=== PATIENT | female | born 1970 ===

== ENCOUNTER 2018-09-10 15:11 | Inpatient (IN) | payer MEDICARE ==
[2018-09-10] MEDS ORDERED: Albuterol-Ipratrop 3 mg / 0.5 (3 ml) UD ONE ×2 (16:12→16:37)
[2018-09-10] MEDS ORDERED: Albuterol-Ipratrop 3 mg / 0.5 (3 ml) UD INH STA ×2 (16:33→16:42)
--- NOTE | 2018-09-10 16:36 | ED PDOC ---
HPI: SOB/CHF/COPD Time Seen by Provider: 09/10/18 16:03 Chief Complaint (Nursing): Shortness Of Breath Chief Complaint (Provider): cough and shortness of breath History Per: Patient History/Exam Limitations: no limitations Onset/Duration Of Symptoms: Days Quality: Sharp Associated Symptoms: Chills, Sweating, Chest Pain, Productive Cough. denies: Fever Additional Complaint(s): 48 y/o F with HTN, HL, DM-II, asthma who presents with SOB and cough x 1 month, worse over the past 4 days. Pt states that she always coughs with her asthma and has been coughing worse at night, intermittently productive of sputum. Further admits to intermittent dizziness. No palpitations, fever, sick contacts. She has bodyaches and pleuritic chest pain. Denies radiation of pain to arm/jaw. She has gained 15lbs in the past month and has worse SOB with laying flat. + PND. Past Medical History Reviewed: Historical Data, Nursing Documentation, Vital Signs Vital Signs: Last Vital Signs Temp 98.2 F 09/10/18 15:23 Pulse 118 H 09/10/18 15:23 Resp 24 09/10/18 15:23 BP 118/52 L 09/10/18 15:23 Pulse Ox 96 09/10/18 15:23 - Medical History PMH: Diabetes, HTN, Hypercholesterolemia - Family History Family History: States: Unknown Family Hx - Social History Current smoker - smoking cessation education provided: Yes - Home Medications Home Medications: Ambulatory Orders Medication Instructions Recorded Albuterol Sulfate [Ventolin Hfa] 2 puff IH Q6 PRN 09/10/18 Gabapentin [Neurontin] 800 mg PO QID PRN 09/10/18 Insulin Glargine,Hum.rec.anlog 50 unit SQ HS 09/10/18 [Lantus] Montelukast [Singulair] 10 mg PO DAILY 09/10/18 Oxybutynin [Oxybutynin Chloride] 5 mg PO DAILY 09/10/18 RX: MetFORMIN [glucoPHAGE] 1,000 mg PO BID 09/10/18 Risperidone [Risperdal] 1 mg PO DAILY 09/10/18 - Allergies Allergies/Adverse Reactions: Allergies Allergy/AdvReac Type Severity Reaction Status Date / Time No Known Allergies Allergy Verified 09/10/18 15:23 Review of Systems Constitutional: Negative for: Fever Cardiovascular: Positive for: Orthopnea Respiratory: Positive for: Cough, Shortness of Breath, Pleuritic Pain, Sputum Gastrointestinal: Negative for: Nausea, Vomiting Genitourinary Female: Negative for: Dysuria Physical Exam - Reviewed Nursing Documentation Reviewed: Yes Vital Signs Reviewed: Yes - Physical Exam Appears: Positive for: Uncomfortable Head Exam: Positive for: ATRAUMATIC Skin: Positive for: Normal Color Eye Exam: Positive for: Normal appearance ENT: Negative for: Nasal Congestion Cardiovascular/Chest: Positive for: Tachycardia Respiratory: Positive for: Crackles (B/L up to upper lung zones). Negative for: Accessory Muscle Use, Wheezing Gastrointestinal/Abdominal: Positive for: Normal Exam Back: Positive for: Normal Inspection Extremity: Negative for: Pedal Edema Lymphatic: Positive for: Normal Exam Neurologic/Psych: Positive for: Alert, Oriented - Laboratory Results Result Diagrams: 09/10/18 16:40 09/10/18 16:40 - ECG O2 Sat by Pulse Oximetry: 96 Medical Decision Making Medical Decision Making: EKG Trop, CBC, CMP, BNP Chest PA and lateral Duoneb X 1 BNP > 3000 Chest XR: Multifocal infiltrates bilaterally right greater than left. Possible underlying confluent masses. In the absence of prior studies follow-up r ecommended. CT scan of the thorax may better clarify these findings. HgB: 8.5, WBCs: 14K EKG: sinus rhythm Pt's symptoms persisted after Duoneb x 2. Admit to Hospitalist service for further w/u of respiratory failure. Lasix 60mg IV given x 1 Disposition - Patient ED Disposition Is Patient to be Admitted: Yes Discussed With DrMichael: Lizabeth Rojas Doctor Will See Patient In The: ED Counseled Patient/Family Regarding: Studies Performed, Diagnosis, Need For Followup - Disposition Disposition: Transfer of Care Disposition Time: 18:28 Condition: GUARDED
[2018-09-10 16:51] LABS: BASO # 0.2 K/uL (0.0-0.2); BASO % 1.3 % (0.0-2.0); EOS % 0.2 % (0.0-4.0); HEMOGLOBIN 8.5 g/dL (12.0-16.0); LYMPH # 1.8 K/uL (1.0-4.3); LYMPH % 12.7 % (20.0-40.0); MEAN CELL VOLUME 93.7 fl (81.0-99.0); MEAN CORPUSCULAR HEMOGLOBIN 30.6 pg (27.0-31.0); MEAN CORPUSCULAR HGB CONC 32.7 g/dL (33.0-37.0); MEAN PLATELET VOLUME 9.1 fl (7.2-11.7); MONO # 0.9 K/uL (0.0-0.8); MONO % 6.1 % (0.0-10.0); NEUT # 11.1 K/uL (1.8-7.0); NEUT % 79.7 % (50.0-75.0); RBC 2.77 Mil/uL (3.80-5.20); RED CELL DISTRIBUTION WIDTH 13.5 % (11.5-14.5)
--- NOTE | 2018-09-10 17:07 | RAD ---
Date of service: 09/10/2018 HISTORY: shortness of breath, cough COMPARISON: No prior. TECHNIQUE: Chest PA and lateral FINDINGS: LUNGS: Multiple confluent alveolar consolidative changes bilaterally affecting the right lung to a greater extent than the left. There is suggestion of masslike properties to these findings. PLEURA: No significant pleural effusion identified. No pneumothorax apparent. CARDIOVASCULAR: No aortic atherosclerotic calcification present. Normal cardiac size. No pulmonary vascular congestion. OSSEOUS STRUCTURES: No significant abnormalities. VISUALIZED UPPER ABDOMEN: Normal. OTHER FINDINGS: None. IMPRESSION: Multifocal infiltrates bilaterally right greater than left. Possible underlying confluent masses. In the absence of prior studies follow-up recommended. CT scan of the thorax may better clarify these findings.
[2018-09-10 17:13] LABS: ALB/GLOB RATIO 1.1 (1.0-2.1); ALBUMIN 3.7 g/dL (3.5-5.0); CALCIUM 9.2 mg/dL (8.4-10.2)
[2018-09-10 17:14] LABS: TROPONIN I 0.054 ng/mL (0.00-0.120)
[2018-09-10 19:07] LABS: INR 1.1; PROTHROMBIN TIME 12.6 Seconds (9.8-13.1)
[2018-09-10 19:10] LABS: PARTIAL THROMBOPLASTIN TIME 29.7 Seconds (25.6-37.1)
--- NOTE | 2018-09-10 20:53 | CP.PCM.HP ---
<Sultan Rachel - Last Filed: 09/11/18 01:43> History of Present Illness - History of Present Illness History of Present Illness: CC: productive cough and dyspnea HPI: 48 year old female with PMHx of asthma, HTN, DM II presents to [facility] ED with complaints of cough >1 month with worsening cough and shortness of breath for last few days. Patient reports she thought her asthma has been acting up and uses her inhaler more frequently. States last 4 days she feels bodyaches, fever and chills. Reports chest pain with coughing. Denies headache, dizziness, nausea, vomiting or focal weakness. PMHX: Asthma, HTN, DMII, HLD PSHX: Denies Social hx: smokes 10 cigarettes/day for 30 yrs. Denies Etoh use or illicit drugs uses Family hx: Grandmother has DMII Allergies: NKDA Medications: reviewed Present on Admission - Present on Admission Any Indicators Present on Admission: No Review of Systems - Review of Systems Review of Systems: All 12 systems reviewed and negative except as mentioned in HPI Past Patient History - Past Social History Smoking Status: Heavy Smoker > 10 Cigarettes Daily - PULMONARY Hx Asthma: Yes - PSYCHIATRIC Hx Substance Use: Yes - SURGICAL HISTORY Hx Surgeries: Yes Meds Allergies/Adverse Reactions: Allergies Allergy/AdvReac Type Severity Reaction Status Date / Time No Known Allergies Allergy Verified 09/10/18 15:23 Physical Exam - Constitutional Appears: Non-toxic, Other (looks uncomfortable) - Head Exam Head Exam: ATRAUMATIC, NORMAL INSPECTION, NORMOCEPHALIC - Eye Exam Eye Exam: EOMI, Normal appearance - ENT Exam ENT Exam: Mucous Membranes Moist, Normal Exam - Neck Exam Neck exam: Positive for: Full Rom, Normal Inspection. Negative for: Meningismus - Respiratory Exam Additional comments: B/L diffuse crackles more prominent in lower lung moreno - Cardiovascular Exam Cardiovascular Exam: REGULAR RHYTHM, +S1, +S2 - GI/Abdominal Exam GI & Abdominal Exam: Normal Bowel Sounds, Soft. absent: Tenderness - Extremities Exam Extremities exam: Positive for: normal capillary refill, normal inspection, pedal pulses present. Negative for: calf tenderness, pedal edema - Back Exam Back exam: absent: CVA tenderness (L), CVA tenderness (R) - Neurological Exam Neurological exam: Alert, Oriented x3 - Psychiatric Exam Psychiatric exam: Normal Affect, Normal Mood - Skin Skin Exam: Dry, Normal Color, Warm Results - Vital Signs Recent Vital Signs: Last Vital Signs Temp 99.4 F 09/10/18 20:42 Pulse 106 H 09/10/18 20:42 Resp 14 09/10/18 20:42 BP 110/65 09/10/18 20:42 Pulse Ox 96 09/10/18 20:42 - Labs Result Diagrams: 09/10/18 16:40 09/10/18 16:40 Labs: Laboratory Results - last 24 hr 09/10/18 09/10/18 09/10/18 16:40 16:40 18:56 WBC 14.0 H RBC 2.77 L Hgb 8.5 L Hct 26.0 L MCV 93.7 MCH 30.6 MCHC 32.7 L RDW 13.5 Plt Count 299 MPV 9.1 Neut % (Auto) 79.7 H Lymph % (Auto) 12.7 L [place] % (Auto) 6.1 Eos % (Auto) 0.2 Baso % (Auto) 1.3 Neut # (Auto) 11.1 H Lymph # (Auto) 1.8 [place] # (Auto) 0.9 H Eos # (Auto) 0.0 Baso # (Auto) 0.2 PT 12.6 INR 1.1 APTT 29.7 Sodium 136 Potassium 4.4 Chloride 100 Carbon Dioxide 24 Anion Gap 16 BUN 31 H Creatinine 1.4 H Est GFR ( Amer) 49 Est GFR (Non-Af Amer) 40 Random Glucose 250 H Calcium 9.2 Total Bilirubin 0.6 AST 25 ALT 18 Alkaline Phosphatase 88 Troponin I 0.0540 NT-Pro-B Natriuret Pep 3080 H Total Protein 7.2 Albumin 3.7 Globulin 3.5 Albumin/Globulin Ratio 1.1 Influenza Typ A,B (EIA) 09/10/18 18:56 WBC RBC Hgb Hct MCV MCH MCHC RDW Plt Count MPV Neut % (Auto) Lymph % (Auto) [place] % (Auto) Eos % (Auto) Baso % (Auto) Neut # (Auto) Lymph # (Auto) [place] # (Auto) Eos # (Auto) Baso # (Auto) PT INR APTT Sodium Potassium Chloride Carbon Dioxide Anion Gap BUN Creatinine Est GFR ( Amer) Est GFR (Non-Af Amer) Random Glucose Calcium Total Bilirubin AST ALT Alkaline Phosphatase Troponin I NT-Pro-B Natriuret Pep Total Protein Albumin Globulin Albumin/Globulin Ratio Influenza Typ A,B (EIA) Negative for flu a/b Assessment & Plan - Assessment and Plan (Free Text) Assessment: 48 year old female with PMHx of asthma, HTN, DM II presents to [facility] ED with complaints of cough >1 month with worsening cough and shortness of breath for last few days. Associated symptoms including fever, chills and bodyaches. Chest x-ray shows multifocal infiltrates bilaterally right greater than left. Patient is admitted for pneumonia. Plan: Community acquired pneumonia -CXR showed shows multifocal infiltrates bilaterally right greater than left. -WBC 14.0 with left shift -Febrile and tachycardic -start Ceftrixone 1gm IVPB Q24 hrs -Start Azithromycin 500mg ivpb q24 hrs -c/w duoneb q6hrs -f/u labs and blood cx -f/u chest CT Dyspnea Likely secondary to PNA and possible new onset CHF -proBNP 3080 -s/p Lasix 60 mg IV in ED -c/w Lasix 60 mg QD -c/w duoneb q6 hr -f/u on ECHO Acute kidney injury BUN 31, Cr 1.4 with eGFR 40 -Unknown whether superimposed on chronic MOHAMUD -Encourage hydration -F/U am labs Anemia -H&H 8.5/26.0 -f/u AM labs IDDM II -resume home medication except for metformin -accucheck ACHS -Low sliding scale insulin DVT prophylaxis: Lovenox 30 mg SC daily GI prophylaxis: Pantoprazole 40 mg Code status -Full code Plan d/w with Dr. Bob Ramos, pgy-2 <Lizabeth Rojas - Last Filed: 09/11/18 18:34> Results - Vital Signs Recent Vital Signs: Last Vital Signs Temp 98.5 F 09/11/18 16:48 Pulse 98 H 09/11/18 16:48 Resp 20 09/11/18 16:48 BP 105/68 09/11/18 16:48 Pulse Ox 98 09/11/18 16:48 - Labs Result Diagrams: 09/11/18 04:45 09/11/18 04:45 Labs: Laboratory Results - last 24 hr 09/10/18 09/10/18 09/10/18 18:56 18:56 18:56 WBC RBC Hgb Hct MCV MCH MCHC RDW Plt Count MPV Neut % (Auto) Lymph % (Auto) [place] % (Auto) Eos % (Auto) Baso % (Auto) Neut # (Auto) Lymph # (Auto) [place] # (Auto) Eos # (Auto) Baso # (Auto) PT 12.6 INR 1.1 APTT 29.7 Sodium Potassium Chloride Carbon Dioxide Anion Gap BUN Creatinine Est GFR ( Amer) Est GFR (Non-Af Amer) POC Glucose (mg/dL) Random Glucose Calcium Phosphorus Magnesium Procalcitonin 4.95 H HIV-1 Ab Rapid Screen Influenza Typ A,B (EIA) Negative for flu a/b 09/10/18 09/11/18 09/11/18 22:31 04:45 04:45 WBC 12.0 H RBC 2.65 L Hgb 8.1 L Hct 24.8 L MCV 93.6 MCH 30.6 MCHC 32.7 L RDW 13.5 Plt Count 291 MPV 9.1 Neut % (Auto) 66.5 Lymph % (Auto) 22.0 [place] % (Auto) 8.4 Eos % (Auto) 2.5 Baso % (Auto) 0.6 Neut # (Auto) 8.0 H Lymph # (Auto) 2.6 [place] # (Auto) 1.0 H Eos # (Auto) 0.3 Baso # (Auto) 0.1 PT INR APTT Sodium 138 Potassium 4.3 Chloride 103 Carbon Dioxide 28 Anion Gap 11 BUN 29 H Creatinine 1.4 H Est GFR ( Amer) 49 Est GFR (Non-Af Amer) 40 POC Glucose (mg/dL) 204 H Random Glucose 152 H Calcium 8.7 Phosphorus 4.3 Magnesium 2.2 Procalcitonin HIV-1 Ab Rapid Screen Influenza Typ A,B (EIA) 09/11/18 09/11/18 04:59 09:57 WBC RBC Hgb Hct MCV MCH MCHC RDW Plt Count MPV Neut % (Auto) Lymph % (Auto) [place] % (Auto) Eos % (Auto) Baso % (Auto) Neut # (Auto) Lymph # (Auto) [place] # (Auto) Eos # (Auto) Baso # (Auto) PT INR APTT Sodium Potassium Chloride Carbon Dioxide Anion Gap BUN Creatinine Est GFR ( Amer) Est GFR (Non-Af Amer) POC Glucose (mg/dL) 172 H Random Glucose Calcium Phosphorus Magnesium Procalcitonin HIV-1 Ab Rapid Screen Non reactive Influenza Typ A,B (EIA) Attending/Attestation - Attestation I have personally seen and examined this patient.: Yes I have fully participated in the care of the patient.: Yes I have reviewed all pertinent clinical information: Yes Notes (Text): 09/11/18 18:33 agree with findings and plan as above.
[2018-09-11] MEDS ORDERED: Azithromycin 500 MG in Sodium Chloride 0.9% 250 ML IVPB STA (00:01)
[2018-09-11] MEDS: Oxycodone/Acetaminophen 5/325 mg Tab PO PRN ×3 (00:39→21:01)
[2018-09-11] MEDS: Albuterol-Ipratrop 3 mg / 0.5 (3 ml) UD INH SCH ×4 (00:59→19:02)
[2018-09-11] MEDS ORDERED: Petrolatum UD PAK TOP PRN (01:08)
[2018-09-11 05:33] LABS: BASO # 0.1 K/uL (0.0-0.2); BASO % 0.6 % (0.0-2.0); EOS # 0.3 K/uL (0.0-0.7); EOS % 2.5 % (0.0-4.0); HEMOGLOBIN 8.1 g/dL (12.0-16.0); LYMPH # 2.6 K/uL (1.0-4.3); MEAN CELL VOLUME 93.6 fl (81.0-99.0); MEAN CORPUSCULAR HEMOGLOBIN 30.6 pg (27.0-31.0); MEAN CORPUSCULAR HGB CONC 32.7 g/dL (33.0-37.0); MEAN PLATELET VOLUME 9.1 fl (7.2-11.7); MONO % 8.4 % (0.0-10.0); NEUT % 66.5 % (50.0-75.0); RBC 2.65 Mil/uL (3.80-5.20); RED CELL DISTRIBUTION WIDTH 13.5 % (11.5-14.5)
[2018-09-11 05:48] LABS: CALCIUM 8.7 mg/dL (8.4-10.2)
--- NOTE | 2018-09-11 07:09 | CARD ---
APPROVED REPORT Date of service: 09/10/2018 EKG Measurement Heart [id number] <Conclusion> Sinus tachycardia Poor R wave progression Abnormal ECG
[2018-09-11] MEDS: Insulin Regular 100 units/ml SC SCH ×4 (08:15→22:49)
[2018-09-11] MEDS ORDERED: Sodium Chloride 3% for Inhalation 4 ML VIAL.NEB IH PRN ×2 (08:34→17:45)
[2018-09-11] MEDS ORDERED: Azithromycin 500 MG in Sodium Chloride 0.9% 250 ML IVPB SCH (09:00)
[2018-09-11] MEDS: Pantoprazole 40 mg EC Tab PO SCH (09:04)
--- NOTE | 2018-09-11 09:49 | CP.PCM.PN ---
<Shahzad Boudreaux - Last Filed: 09/11/18 13:29> Subjective - Date & Time of Evaluation Date of Evaluation: 09/11/18 Time of Evaluation: 07:00 - Subjective Subjective: Pt seen and examined at bedside enjoying breakfast. Pt reports SOB and discomfort with inspiration along with bilateral calf tenderness. Pt reports recently traveling from [place] via [place]. Objective - Vital Signs/Intake and Output Vital Signs (last 24 hours): Temp Pulse Resp BP Pulse Ox 98.6 F 104 H 18 107/53 L 95 09/11/18 07:59 09/11/18 07:59 09/11/18 07:59 09/11/18 09:03 09/11/18 07:59 - Medications Medications: Current Medications Acetaminophen (Tylenol 325mg Tab) 650 mg PO Q6 PRN PRN Reason: Pain, Mild (1-3) Last Admin: 09/11/18 04:56 Dose: 650 mg Albuterol/Ipratropium (Duoneb 3 Mg/0.5 Mg (3 Ml) Ud) 3 ml INH RQ6 ANGELINA Last Admin: 09/11/18 07:11 Dose: 3 ml Emollient Ointment (Vaseline Oint) 1 pkt TOP TID PRN PRN Reason: Dry skin Last Admin: 09/11/18 04:55 Dose: 1 pkt Enoxaparin Sodium (Lovenox) 30 mg SC DAILY ANGELINA; Protocol Furosemide (Lasix) 60 mg IVP DAILY ANGELINA Last Admin: 09/11/18 09:03 Dose: 60 mg Gabapentin (Neurontin) 800 mg PO QID PRN PRN Reason: Pain, moderate (4-7) Last Admin: 09/11/18 09:02 Dose: 800 mg Ceftriaxone Sodium 1 gm/ (Sodium Chloride) 100 mls @ 100 mls/hr IVPB DAILY ANGELINA; Protocol Azithromycin 500 mg/ Sodium (Chloride) 250 mls @ 250 mls/hr IVPB DAILY ANGELINA; Protocol Insulin Human Regular (Humulin R) 0 units SC ACHS ANGELINA; Protocol Last Admin: 09/11/18 08:15 Dose: 1 unit Montelukast Sodium (Singulair) 10 mg PO DAILY ANGELINA Oxybutynin Chloride (Ditropan Tab) 5 mg PO DAILY ANGELINA Last Admin: 09/11/18 09:06 Dose: Not Given Oxycodone/Acetaminophen (Percocet 5/325 Mg Tab) 1 tab PO Q4 PRN PRN Reason: Pain, moderate (4-7) Stop: 09/14/18 00:04 Last Admin: 09/11/18 09:21 Dose: 1 tab Pantoprazole Sodium (Protonix Ec Tab) 40 mg PO DAILY [facility] Last Admin: 09/11/18 09:04 Dose: 40 mg Risperidone (Risperdal Tab) 1 mg PO DAILY [facility] Last Admin: 09/11/18 09:06 Dose: 1 mg - Labs Labs: 09/11/18 04:45 09/11/18 04:45 PT 12.6 Seconds (9.8-13.1) 09/10/18 18:56 INR 1.1 09/10/18 18:56 APTT 29.7 Seconds (25.6-37.1) 09/10/18 18:56 - Constitutional Appears: Well, Non-toxic - Eye Exam Eye Exam: EOMI - Neck Exam Neck Exam: Full ROM - Respiratory Exam Respiratory Exam: Decreased Breath Sounds, Rhonchi - Cardiovascular Exam Cardiovascular Exam: REGULAR RHYTHM, +S1, +S2 - GI/Abdominal Exam GI & Abdominal Exam: Soft, Normal Bowel Sounds. absent: Tenderness - Extremities Exam Extremities Exam: Calf Tenderness - Neurological Exam Neurological Exam: Alert, Awake, CN II-XII Intact, Oriented x3 - Psychiatric Exam Psychiatric exam: Normal Affect, Normal Mood Assessment and Plan - Assessment and Plan (Free Text) Assessment: 48 year old female with PMHx of asthma, HTN, DM II presents to [facility] ED with complaints of cough >1 month with worsening cough and shortness of breath for last few days. Associated symptoms including fever, chills and body aches. Chest x-ray shows multi focal infiltrates bilaterally right greater than left. Patient is admitted for pneumonia. Plan: Community acquired pneumonia -tele -Airborne and contact precautions -CXR showed shows multifocal infiltrates bilaterally right greater than left. -Chest CT: performed. Pending official report -WBC 14.0 with left shift -Febrile and tachycardic -Ceftrixone 1gm IVPB Q24 hrs -Azithromycin 500mg ivpb q24 hrs -c/w duoneb q6hrs -Pulm: Dr. Stern -f/u labs and Cultures for blood, sputum; legionella, mycoplasma, strep pnuemoniae, HIV Dyspnea -Likely secondary to PNA and possible new onset CHF -proBNP 3080 -Venous duplex negative -s/p Lasix 60 mg IV -c/w duoneb q6 hr -f/u on ECHO Acute kidney injury BUN 31, Cr 1.4 with eGFR 40 -Unknown whether superimposed on chronic MOHAMUD -Encourage hydration -F/U am labs Anemia -H&H 8.5/26.0; 8.1/24.8 -f/u AM labs IDDM II -resume home medication except for metformin -accucheck ACHS -Low sliding scale insulin Peripheral neuropathy -Gabapentin 800 mg DVT prophylaxis: Lovenox 30 mg SC daily GI prophylaxis: Pantoprazole 40 mg Code status -Full code Plan d/w with Dr. Bob Boudreaux MD PGY2 <Lizabeth Rojas - Last Filed: 09/11/18 18:31> Objective - Vital Signs/Intake and Output Vital Signs (last 24 hours): Temp Pulse Resp BP Pulse Ox 98.5 F 98 H 20 105/68 98 09/11/18 16:48 09/11/18 16:48 09/11/18 16:48 09/11/18 16:48 09/11/18 16:48 - Medications Medications: Current Medications Acetaminophen (Tylenol 325mg Tab) 650 mg PO Q6 PRN PRN Reason: Pain, Mild (1-3) Last Admin: 09/11/18 04:56 Dose: 650 mg Albuterol/Ipratropium (Duoneb 3 Mg/0.5 Mg (3 Ml) Ud) 3 ml INH RQ6 ANGELINA Last Admin: 09/11/18 13:06 Dose: 3 ml Emollient Ointment (Vaseline Oint) 1 pkt TOP TID PRN PRN Reason: Dry skin Last Admin: 09/11/18 04:55 Dose: 1 pkt Enoxaparin Sodium (Lovenox) 30 mg SC DAILY ANGELINA; Protocol Last Admin: 09/11/18 12:10 Dose: 30 mg Gabapentin (Neurontin) 800 mg PO QID PRN PRN Reason: Pain, moderate (4-7) Last Admin: 09/11/18 09:02 Dose: 800 mg Vancomycin HCl 1 gm/ Sodium (Chloride) 250 mls @ 166.667 mls/hr IVPB DAILY ANGELINA; Protocol Last Admin: 09/11/18 17:18 Dose: 166.667 mls/hr Piperacillin Sod/Tazobactam (Sod 2.25 gm/ Sodium Chloride) 100 mls @ 100 mls/hr IVPB Q6 ANGELINA; Protocol Sodium Chloride (Sodium Chloride 0.9%) 1,000 mls @ 125 mls/hr IV .Q8H ANGELINA Stop: 09/12/18 00:44 Last Admin: 09/11/18 17:22 Dose: 125 mls/hr Azithromycin 500 mg/ Sodium (Chloride) 250 mls @ 250 mls/hr IVPB DAILY ANGELINA; Protocol Insulin Human Regular (Humulin R) 0 units SC ACHS ANGELINA; Protocol Last Admin: 09/11/18 12:30 Dose: 4 unit Montelukast Sodium (Singulair) 10 mg PO DAILY [facility] Last Admin: 09/11/18 10:20 Dose: 10 mg Oxybutynin Chloride (Ditropan Tab) 5 mg PO DAILY [facility] Last Admin: 09/11/18 09:06 Dose: Not Given Oxycodone/Acetaminophen (Percocet 5/325 Mg Tab) 1 tab PO Q4 PRN PRN Reason: Pain, moderate (4-7) Stop: 09/14/18 00:04 Last Admin: 09/11/18 09:21 Dose: 1 tab Pantoprazole Sodium (Protonix Ec Tab) 40 mg PO DAILY [facility] Last Admin: 09/11/18 09:04 Dose: 40 mg Promethazine HCl/Codeine (Phenergan/Codeine Oral Syrup) 5 ml PO Q6 PRN PRN Reason: Cough Last Admin: 09/11/18 15:08 Dose: 5 ml Risperidone (Risperdal Tab) 1 mg PO DAILY [facility] Last Admin: 09/11/18 09:06 Dose: 1 mg - Labs Labs: 09/11/18 04:45 09/11/18 04:45 PT 12.6 Seconds (9.8-13.1) 09/10/18 18:56 INR 1.1 09/10/18 18:56 APTT 29.7 Seconds (25.6-37.1) 09/10/18 18:56 Attending/Attestation - Attestation I have personally seen and examined this patient.: Yes I have fully participated in the care of the patient.: Yes I have reviewed all pertinent clinical information, including history, physical exam and plan: Yes Notes (Text): 09/11/18 18:31 agree with findings and plan as above.
[2018-09-11] MEDS: Enoxaparin 30 mg Syringe SC SCH (12:10)
--- NOTE | 2018-09-11 12:44 | CT ---
Date of service: 09/10/2018 PROCEDURE: CT Chest without contrast HISTORY: B/L infiltrates on CXR, resp failure COMPARISON: Plain radiographs performed the same day. TECHNIQUE: Contiguous axial images were obtained through the chest without intravenous contrast enhancement. Sagittal and coronal reconstructions were performed. Radiation dose: Total exam DLP = 315.16 mGy-cm. This CT exam was performed using one or more of the following dose reduction techniques: Automated exposure control, adjustment of the mA and/or kV according to patient size, and/or use of iterative reconstruction technique. FINDINGS: LUNGS: The lungs are well inflated. There are extensive confluent ground-glass opacities in both upper lobes, right middle lobe and lingula. There are more confluent multifocal ground-glass and confluent airspace disease in both lower lobes. There are no endobronchial lesions. MEDIASTINUM: Unremarkable thoracic aorta. No aneurysm. Mild cardiomegaly. Main pulmonary artery unremarkable. No vascular congestion. Subcentimeter mediastinal lymph nodes are likely reactive in etiology. No aortic atherosclerotic calcification. PLEURA: No pleural fluid. No pneumothorax. BONES: No fracture. No destructive lesion. UPPER ABDOMEN: Grossly unremarkable. OTHER FINDINGS: None. IMPRESSION: Extensive multifocal confluent ground-glass opacities in the lungs and confluent airspace disease in the lower lobes. Findings could be related to multifocal pneumonia, nonspecific inflammation, pulmonary edema or the ARDS. Clinical follow-up is advised.
--- NOTE | 2018-09-11 12:50 | US ---
Date of service: 09/11/2018 PROCEDURE: Bilateral lower extremity venous duplex Doppler. HISTORY: sob COMPARISON: None available. TECHNIQUE: Bilateral common femoral, superficial femoral, popliteal and posterior tibial veins were evaluated. Flow was assessed with color Doppler, compressibility, assessment of phasic flow and augmentation response. FINDINGS: COMMON FEMORAL VEIN: Right CFV: Unremarkable. Left CFV: Unremarkable. SUPERFICIAL FEMORAL VEIN: Right SFV: Unremarkable. Left SFV: Unremarkable. POPLITEAL VEIN: Right Popliteal: Unremarkable. Left Popliteal: Unremarkable. POSTERIOR TIBIAL VEIN: Right PTV: Unremarkable. Left PTV: Unremarkable. OTHER FINDINGS: None. IMPRESSION: No evidence of deep venous thrombosis.
--- NOTE | 2018-09-11 13:25 | CP.PCM.CON ---
History of Present Illness - History of Present Illness History of Present Illness: Pulmonary consult for a 48 y/o F, PMHx: Asthma, HTN, HLD, DMII. [facility] for evaluation of intractable dry cough ( at times productive at night when lying down), associated to SOB for a month, worsening on DOA, also associated to fever, chills, sweating, Pt using inhalers at home with no relief. Worsening symptoms: BYNUM, Chest discomfort with coughing. ( Pt has Hx of former heavy smoker, 30 cigarettes x 30 yrs). Pt also c/o of chronic back pain which is throbbing, moderate to severe intensity 7:10 with no relief. Aggravated factor: Cough/exercise. Pt denied: Syncope, weakness, n/v/d, abdominal pain, urinary symptoms, headache, dizziness, CP, palpitations, sick contact, recent travel out of [facility]. CXR showed: Multifocal infiltrate b/l, R>L. EKG: sinus tachycardia, poor R wave progression. Ext. U-S: No DVT. Review of Systems - Constitutional Constitutional: Fever, Night Sweats - EENT Eyes: Requires Corrective Lenses Ears: Other (negative) Nose/Mouth/Throat: Other (negative) - Cardiovascular Cardiovascular: Rapid Heart Rate - Respiratory Respiratory: Cough, Dyspnea, Dyspnea on Exertion, Chest Congestion, Pain with Coughing - Gastrointestinal Gastrointestinal: Other (negative) - Genitourinary Genitourinary: Other (negative) - Musculoskeletal Musculoskeletal: Back Pain - Integumentary Integumentary: Other (negative) - Neurological Neurological: Other (negative) - Psychiatric Psychiatric: Anxiety - Endocrine Endocrine: Other (negative) - Hematologic/Lymphatic Hematologic: Other (negative) Past Patient History - Past Medical History & Family History Past Medical History?: Yes Pertinent Family History: Grandmother: DMII - Past Social History Smoking Status: Heavy Smoker > 10 Cigarettes Daily Alcohol: None Drugs: Denies Home Situation {Lives}: Alone - CARDIAC Hx Cardiac Disorders: Yes Hx Hypercholesterolemia: Yes Hx Hypertension: Yes - PULMONARY Hx Respiratory Disorders: Yes Hx Asthma: Yes Hx Chronic Obstructive Pulmonary Disease (COPD): Yes - NEUROLOGICAL Hx Neurological Disorder: No - HEENT Hx HEENT Problems: No - RENAL Hx Chronic Kidney Disease: No - ENDOCRINE/METABOLIC Hx Endocrine Disorders: Yes Hx Diabetes Mellitus Type 2: Yes - HEMATOLOGICAL/ONCOLOGICAL Hx Blood Disorders: No Hx AIDS: No Hx Human Immunodeficiency Virus (HIV): No - INTEGUMENTARY Hx Dermatological Problems: No - MUSCULOSKELETAL/RHEUMATOLOGICAL Hx Musculoskeletal Disorders: Yes (Back surgeries) Hx Falls: Yes - GASTROINTESTINAL Hx Gastrointestinal Disorders: No - GENITOURINARY/GYNECOLOGICAL Hx Genitourinary Disorders: No - PSYCHIATRIC Hx Psychophysiologic Disorder: Yes Hx Substance Use: Yes - SURGICAL HISTORY Hx Surgeries: Yes (Back surgery) - ANESTHESIA Hx Anesthesia: Yes Hx Anesthesia Reactions: No Meds Allergies/Adverse Reactions: Allergies Allergy/AdvReac Type Severity Reaction Status Date / Time No Known Allergies Allergy Verified 09/10/18 15:23 - Medications Medications: Current Medications Acetaminophen (Tylenol 325mg Tab) 650 mg PO Q6 PRN PRN Reason: Pain, Mild (1-3) Last Admin: 09/11/18 04:56 Dose: 650 mg Albuterol/Ipratropium (Duoneb 3 Mg/0.5 Mg (3 Ml) Ud) 3 ml INH RQ6 ANGELINA Last Admin: 09/11/18 13:06 Dose: 3 ml Emollient Ointment (Vaseline Oint) 1 pkt TOP TID PRN PRN Reason: Dry skin Last Admin: 09/11/18 04:55 Dose: 1 pkt Enoxaparin Sodium (Lovenox) 30 mg SC DAILY ANGELINA; Protocol Gabapentin (Neurontin) 800 mg PO QID PRN PRN Reason: Pain, moderate (4-7) Last Admin: 09/11/18 09:02 Dose: 800 mg Ceftriaxone Sodium 1 gm/ (Sodium Chloride) 100 mls @ 100 mls/hr IVPB DAILY ANGELINA; Protocol Last Admin: 09/11/18 11:34 Dose: 100 mls/hr Azithromycin 500 mg/ Sodium (Chloride) 250 mls @ 250 mls/hr IVPB DAILY ANGELINA; Protocol Last Admin: 09/11/18 11:34 Dose: 250 mls/hr Insulin Human Regular (Humulin R) 0 units SC ACHS ANGELINA; Protocol Last Admin: 09/11/18 08:15 Dose: 1 unit Montelukast Sodium (Singulair) [address] [facility] Ondansetron HCl (Zofran Tab) 4 mg PO ONCE ONE Stop: 09/11/18 12:28 Oxybutynin Chloride (Ditropan Tab) [address] [facility] Last Admin: 09/11/18 09:06 Dose: Not Given Oxycodone/Acetaminophen (Percocet 5/325 Mg Tab) 1 tab PO Q4 PRN PRN Reason: Pain, moderate (4-7) Stop: 09/14/18 00:04 Last Admin: 09/11/18 09:21 Dose: 1 tab Pantoprazole Sodium (Protonix Ec Tab) [address] [facility] Last Admin: 09/11/18 09:04 Dose: 40 mg Risperidone (Risperdal Tab) [address] [facility] Last Admin: 09/11/18 09:06 Dose: 1 mg Physical Exam - Constitutional Appears: No Acute Distress - Head Exam Head Exam: NORMAL INSPECTION - Eye Exam Eye Exam: PERRL - ENT Exam ENT Exam: Normal Exam - Neck Exam Neck exam: Positive for: Normal Inspection - Respiratory Exam Respiratory Exam: Decreased Breath Sounds (b/l, ) Additional comments: Few crackles b/l - Cardiovascular Exam Cardiovascular Exam: REGULAR RHYTHM - GI/Abdominal Exam GI & Abdominal Exam: Normal Bowel Sounds, Soft - Extremities Exam Extremities exam: Positive for: tenderness (R L calf) - Back Exam Back exam: NORMAL INSPECTION - Neurological Exam Neurological exam: Alert, Oriented x3 Additional comments: no focal motor/sensory deficit - Psychiatric Exam Psychiatric exam: Normal Mood - Skin Skin Exam: Normal Color, Warm Results - Vital Signs Recent Vital Signs: Last Vital Signs Temp 98.5 F 09/11/18 12:13 Pulse 102 H 09/11/18 12:13 Resp 18 09/11/18 12:13 BP 94/58 L 09/11/18 12:13 Pulse Ox 90 L 09/11/18 12:13 reviewed Ron - Labs Result Diagrams: 09/12/18 05:30 09/12/18 05:30 Labs: Laboratory Results - last 24 hr 09/10/18 09/10/18 09/10/18 16:40 16:40 18:56 WBC 14.0 H RBC 2.77 L Hgb 8.5 L Hct 26.0 L MCV 93.7 MCH 30.6 MCHC 32.7 L RDW 13.5 Plt Count 299 MPV 9.1 Neut % (Auto) 79.7 H Lymph % (Auto) 12.7 L [place] % (Auto) 6.1 Eos % (Auto) 0.2 Baso % (Auto) 1.3 Neut # (Auto) 11.1 H Lymph # (Auto) 1.8 [place] # (Auto) 0.9 H Eos # (Auto) 0.0 Baso # (Auto) 0.2 PT 12.6 INR 1.1 APTT 29.7 Sodium 136 Potassium 4.4 Chloride 100 Carbon Dioxide 24 Anion Gap 16 BUN 31 H Creatinine 1.4 H Est GFR ( Amer) 49 Est GFR (Non-Af Amer) 40 POC Glucose (mg/dL) Random Glucose 250 H Calcium 9.2 Phosphorus Magnesium Total Bilirubin 0.6 AST 25 ALT 18 Alkaline Phosphatase 88 Troponin I 0.0540 NT-Pro-B Natriuret Pep 3080 H Total Protein 7.2 Albumin 3.7 Globulin 3.5 Albumin/Globulin Ratio 1.1 Procalcitonin HIV-1 Ab Rapid Screen Influenza Typ A,B (EIA) 09/10/18 09/10/18 09/10/18 18:56 18:56 22:31 WBC RBC Hgb Hct MCV MCH MCHC RDW Plt Count MPV Neut % (Auto) Lymph % (Auto) [place] % (Auto) Eos % (Auto) Baso % (Auto) Neut # (Auto) Lymph # (Auto) [place] # (Auto) Eos # (Auto) Baso # (Auto) PT INR APTT Sodium Potassium Chloride Carbon Dioxide Anion Gap BUN Creatinine Est GFR ( Amer) Est GFR (Non-Af Amer) POC Glucose (mg/dL) 204 H Random Glucose Calcium Phosphorus Magnesium Total Bilirubin AST ALT Alkaline Phosphatase Troponin I NT-Pro-B Natriuret Pep Total Protein Albumin Globulin Albumin/Globulin Ratio Procalcitonin 4.95 H HIV-1 Ab Rapid Screen Influenza Typ A,B (EIA) Negative for flu a/b 09/11/18 09/11/18 09/11/18 04:45 04:45 04:59 WBC 12.0 H RBC 2.65 L Hgb 8.1 L Hct 24.8 L MCV 93.6 MCH 30.6 MCHC 32.7 L RDW 13.5 Plt Count 291 MPV 9.1 Neut % (Auto) 66.5 Lymph % (Auto) 22.0 [place] % (Auto) 8.4 Eos % (Auto) 2.5 Baso % (Auto) 0.6 Neut # (Auto) 8.0 H Lymph # (Auto) 2.6 [place] # (Auto) 1.0 H Eos # (Auto) 0.3 Baso # (Auto) 0.1 PT INR APTT Sodium 138 Potassium 4.3 Chloride 103 Carbon Dioxide 28 Anion Gap 11 BUN 29 H Creatinine 1.4 H Est GFR ( Amer) 49 Est GFR (Non-Af Amer) 40 POC Glucose (mg/dL) 172 H Random Glucose 152 H Calcium 8.7 Phosphorus 4.3 Magnesium 2.2 Total Bilirubin AST ALT Alkaline Phosphatase Troponin I NT-Pro-B Natriuret Pep Total Protein Albumin Globulin Albumin/Globulin Ratio Procalcitonin HIV-1 Ab Rapid Screen Influenza Typ A,B (EIA) 09/11/18 09:57 WBC RBC Hgb Hct MCV MCH MCHC RDW Plt Count MPV Neut % (Auto) Lymph % (Auto) [place] % (Auto) Eos % (Auto) Baso % (Auto) Neut # (Auto) Lymph # (Auto) [place] # (Auto) Eos # (Auto) Baso # (Auto) PT INR APTT Sodium Potassium Chloride Carbon Dioxide Anion Gap BUN Creatinine Est GFR ( Amer) Est GFR (Non-Af Amer) POC Glucose (mg/dL) Random Glucose Calcium Phosphorus Magnesium Total Bilirubin AST ALT Alkaline Phosphatase Troponin I NT-Pro-B Natriuret Pep Total Protein Albumin Globulin Albumin/Globulin Ratio Procalcitonin HIV-1 Ab Rapid Screen Non reactive Influenza Typ A,B (EIA) reviewed J.P. - EKG Data EKG comments: reviewed J.P. - Imaging and Cardiology Chest x-ray Status: Report reviewed by me (J.P.) Venous US Status: Report reviewed by me (J.P.) Assessment & Plan (1) CAP (community acquired pneumonia) Status: Acute Priority: High (2) COPD exacerbation Status: Acute Priority: High - Assessment and Plan (Free Text) Plan: F/U Sputum C-S, Echo, continue NC 2 L/M, Duoneb, Vanco, Zosyn, Phenergan with Co, Singulair and rest of Tx., f/u Hgb - Date & Time Date: 09/11/18 Time: 12:30
[2018-09-11] MEDS: Promethazine/Cod 6.25mg-10mg/5ml Syr UD PO PRN ×2 (15:08→22:52)
[2018-09-11] MEDS ORDERED: Sodium Chloride 0.9% 1,000 ML IV SCH (16:45)
[2018-09-12] MEDS: Albuterol-Ipratrop 3 mg / 0.5 (3 ml) UD INH SCH ×3 (01:00→14:31)
[2018-09-12] MEDS: Promethazine/Cod 6.25mg-10mg/5ml Syr UD PO PRN (05:20)
[2018-09-12] MEDS: Oxycodone/Acetaminophen 5/325 mg Tab PO PRN ×2 (05:23→14:49)
[2018-09-12 05:55] LABS: BASO # 0.1 K/uL (0.0-0.2); BASO % 1.3 % (0.0-2.0); EOS # 0.4 K/uL (0.0-0.7); EOS % 3.4 % (0.0-4.0); HEMOGLOBIN 8.5 g/dL (12.0-16.0); LYMPH % 18.6 % (20.0-40.0); MEAN CELL VOLUME 94.2 fl (81.0-99.0); MEAN CORPUSCULAR HEMOGLOBIN 31.2 pg (27.0-31.0); MEAN CORPUSCULAR HGB CONC 33.1 g/dL (33.0-37.0); MONO # 0.8 K/uL (0.0-0.8); MONO % 7.2 % (0.0-10.0); NEUT # 7.4 K/uL (1.8-7.0); NEUT % 69.5 % (50.0-75.0); RBC 2.73 Mil/uL (3.80-5.20); RED CELL DISTRIBUTION WIDTH 13.6 % (11.5-14.5); WHITE BLOOD COUNT 10.6 K/uL (4.8-10.8)
[2018-09-12 06:45] LABS: ALBUMIN 3.5 g/dL (3.5-5.0); CALCIUM 8.7 mg/dL (8.4-10.2)
[2018-09-12] MEDS: Insulin Regular 100 units/ml SC SCH ×2 (06:50→11:43)
[2018-09-12] MEDS ORDERED: Azithromycin 500 MG in Sodium Chloride 0.9% 250 ML IVPB SCH (09:00)
[2018-09-12] MEDS: Enoxaparin 30 mg Syringe SC SCH (09:14)
[2018-09-12] MEDS: Pantoprazole 40 mg EC Tab PO SCH (09:15)
[2018-09-12] MEDS ORDERED: guaiFENesin-DM 600-30 mg ER Tab PO SCH (09:15)
--- NOTE | 2018-09-12 15:39 | CP.PCM.PN ---
Subjective - Date & Time of Evaluation Date of Evaluation: 09/12/18 Time of Evaluation: 10:00 - Subjective Subjective: F/U CAP Objective - Vital Signs/Intake and Output Vital Signs (last 24 hours): Temp Pulse Resp BP Pulse Ox 97.8 F 96 H 20 99/64 L 99 09/12/18 12:39 09/12/18 12:39 09/12/18 12:39 09/12/18 12:39 09/12/18 12:39 - Medications Medications: Current Medications Acetaminophen (Tylenol 325mg Tab) 650 mg PO Q6 PRN PRN Reason: Pain, Mild (1-3) Last Admin: 09/11/18 04:56 Dose: 650 mg Albuterol/Ipratropium (Duoneb 3 Mg/0.5 Mg (3 Ml) Ud) 3 ml INH RQ6 ANGELINA Last Admin: 09/12/18 14:31 Dose: 3 ml Docusate Sodium (Colace) 100 mg PO ONCE ONE Stop: 09/12/18 20:03 Docusate Sodium (Colace) 100 mg PO BID PRN PRN Reason: Constipation Emollient Ointment (Vaseline Oint) 1 pkt TOP TID PRN PRN Reason: Dry skin Last Admin: 09/11/18 04:55 Dose: 1 pkt Enoxaparin Sodium (Lovenox) 30 mg SC DAILY ANGELINA; Protocol Last Admin: 09/12/18 09:14 Dose: 30 mg Gabapentin (Neurontin) 800 mg PO QID PRN PRN Reason: Pain, moderate (4-7) Last Admin: 09/12/18 14:49 Dose: 800 mg Guaifenesin/Dextromethorphan (Mucinex-Dm 600-30 Mg) 1 tab PO BID ANGELINA Last Admin: 09/12/18 11:37 Dose: 1 tab Vancomycin HCl 1 gm/ Sodium (Chloride) 250 mls @ 166.667 mls/hr IVPB DAILY ANGELINA; Protocol Last Admin: 09/12/18 09:17 Dose: 166.667 mls/hr Piperacillin Sod/Tazobactam (Sod 2.25 gm/ Sodium Chloride) 100 mls @ 100 mls/hr IVPB Q6 ANGELINA; Protocol Last Admin: 09/12/18 09:17 Dose: 100 mls/hr Azithromycin 500 mg/ Sodium (Chloride) 250 mls @ 250 mls/hr IVPB DAILY [facility]; Protocol Last Admin: 09/12/18 08:05 Dose: 250 mls/hr Insulin Human Regular (Humulin R) 0 units SC ACHS [facility]; Protocol Last Admin: 09/12/18 11:43 Dose: 3 unit Montelukast Sodium (Singulair) 10 mg PO DAILY [facility] Last Admin: 09/12/18 09:15 Dose: 10 mg Oxybutynin Chloride (Ditropan Tab) 5 mg PO DAILY [facility] Last Admin: 09/12/18 09:16 Dose: 5 mg Oxycodone/Acetaminophen (Percocet 5/325 Mg Tab) 1 tab PO Q4 PRN PRN Reason: Pain, moderate (4-7) Stop: 09/14/18 00:04 Last Admin: 09/12/18 14:49 Dose: 1 tab Pantoprazole Sodium (Protonix Ec Tab) 40 mg PO DAILY [facility] Last Admin: 09/12/18 09:15 Dose: 40 mg Promethazine HCl/Codeine (Phenergan/Codeine Oral Syrup) 5 ml PO Q6 PRN PRN Reason: Cough Last Admin: 09/12/18 05:20 Dose: 5 ml Risperidone (Risperdal Tab) 1 mg PO DAILY [facility] Last Admin: 09/12/18 09:16 Dose: 1 mg - Labs Labs: 09/12/18 05:30 09/12/18 05:30 PT 12.6 Seconds (9.8-13.1) 09/10/18 18:56 INR 1.1 09/10/18 18:56 APTT 29.7 Seconds (25.6-37.1) 09/10/18 18:56 - Constitutional Appears: No Acute Distress - Head Exam Head Exam: NORMAL INSPECTION - Eye Exam Eye Exam: PERRL - ENT Exam ENT Exam: Normal Exam - Neck Exam Neck Exam: Normal Inspection - Respiratory Exam Respiratory Exam: Decreased Breath Sounds (b/l) - Cardiovascular Exam Cardiovascular Exam: REGULAR RHYTHM - GI/Abdominal Exam GI & Abdominal Exam: Soft, Normal Bowel Sounds - Extremities Exam Extremities Exam: Tenderness (R-L calf) - Back Exam Back Exam: NORMAL INSPECTION - Neurological Exam Neurological Exam: Alert, Oriented x3 Additional comments: No focal motor/sensory deficiit. - Psychiatric Exam Psychiatric exam: Normal Mood - Skin Skin Exam: Warm Assessment and Plan (1) CAP (community acquired pneumonia) Status: Acute (2) COPD exacerbation Status: Acute
[2018-09-12 15:51] VITALS: BP 127/82; PULSE 104; RESP 19; TEMP 98.3; O2SAT 97
--- NOTE | 2018-09-12 17:07 | CP.PCM.DIS ---
Provider - Provider Date of Admission: 09/10/18 18:28 Attending physician: Lizabeth Rojas DO Consults: 09/11/18 08:36 Pulmonology Consult Routine Comment: Consulting Provider: Ronnie Stern Consulting Physician: Ronnie Stern Reason for Consult: pneumonia Time Spent in preparation of Discharge (in minutes): 30 Hospital Course - Lab Results Lab Results: Micro Results 09/12/18 08:52 Sputum Gram Stain - Final 09/10/18 Unknown Blood Blood Culture - Preliminary NO GROWTH AFTER 24 HOURS 09/10/18 Unknown Blood Blood Culture - Preliminary NO GROWTH AFTER 24 HOURS Most Recent Lab Values WBC 10.6 K/uL (4.8-10.8) 09/12/18 05:30 RBC 2.73 Mil/uL (3.80-5.20) L 09/12/18 05:30 Hgb 8.5 g/dL (12.0-16.0) L 09/12/18 05:30 Hct 25.8 % (34.0-47.0) L 09/12/18 05:30 MCV 94.2 fl (81.0-99.0) 09/12/18 05:30 MCH 31.2 pg (27.0-31.0) H 09/12/18 05:30 MCHC 33.1 g/dL (33.0-37.0) 09/12/18 05:30 RDW 13.6 % (11.5-14.5) 09/12/18 05:30 Plt Count 311 K/uL (130-400) 09/12/18 05:30 MPV 9.0 fl (7.2-11.7) 09/12/18 05:30 Neut % (Auto) 69.5 % (50.0-75.0) 09/12/18 05:30 Lymph % (Auto) 18.6 % (20.0-40.0) L 09/12/18 05:30 [place] % (Auto) 7.2 % (0.0-10.0) 09/12/18 05:30 Eos % (Auto) 3.4 % (0.0-4.0) 09/12/18 05:30 Baso % (Auto) 1.3 % (0.0-2.0) 09/12/18 05:30 Neut # (Auto) 7.4 K/uL (1.8-7.0) H 09/12/18 05:30 Lymph # (Auto) 2.0 K/uL (1.0-4.3) 09/12/18 05:30 [place] # (Auto) 0.8 K/uL (0.0-0.8) 09/12/18 05:30 Eos # (Auto) 0.4 K/uL (0.0-0.7) 09/12/18 05:30 Baso # (Auto) 0.1 K/uL (0.0-0.2) 09/12/18 05:30 PT 12.6 Seconds (9.8-13.1) 09/10/18 18:56 INR 1.1 09/10/18 18:56 APTT 29.7 Seconds (25.6-37.1) 09/10/18 18:56 Sodium 137 mmol/l (132-148) 09/12/18 05:30 Potassium 4.7 MMOL/L (3.6-5.0) 09/12/18 05:30 Chloride 100 mmol/L (98-107) 09/12/18 05:30 Carbon Dioxide 27 mmol/L (22-30) 09/12/18 05:30 Anion Gap 15 (10-20) 09/12/18 05:30 BUN 26 mg/dl (7-17) H 09/12/18 05:30 Creatinine 1.4 mg/dl (0.7-1.2) H 09/12/18 05:30 Est GFR ( Amer) 49 09/12/18 05:30 Est GFR (Non-Af Amer) 40 09/12/18 05:30 POC Glucose (mg/dL) 255 mg/dL (65-110) H 09/12/18 11:42 Random Glucose 359 mg/dL (65-105) H 09/12/18 05:30 Calcium 8.7 mg/dL (8.4-10.2) 09/12/18 05:30 Phosphorus 3.1 mg/dl (2.5-4.5) 09/12/18 05:30 Magnesium 2.2 MG/DL (1.6-2.3) 09/12/18 05:30 Total Bilirubin 0.2 mg/dl (0.2-1.3) 09/12/18 05:30 AST 20 U/L (14-36) 09/12/18 05:30 ALT 30 U/L (9-52) 09/12/18 05:30 Alkaline Phosphatase 88 U/L (38-126) 09/12/18 05:30 Troponin I 0.0540 ng/mL (0.00-0.120) 09/10/18 16:40 NT-Pro-B Natriuret Pep 3080 pg/ml (0-450) H 09/10/18 16:40 Total Protein 7.0 G/DL (6.3-8.2) 09/12/18 05:30 Albumin 3.5 g/dL (3.5-5.0) 09/12/18 05:30 Globulin 3.4 gm/dL (2.2-3.9) 09/12/18 05:30 Albumin/Globulin Ratio 1.0 (1.0-2.1) 09/12/18 05:30 Procalcitonin 4.95 NG/ML (0.19-0.49) H 09/10/18 18:56 HIV-1 Ab Rapid Screen Non reactive (NON REAC) 09/11/18 09:57 HIV 1&2 Ag/Ab, 4th Gen Nonreactive (Nonreactive) 09/11/18 09:57 Influenza Typ A,B (EIA) Negative for flu a/b (NEGATIVE) 09/10/18 18:56 Ur L.pneumophila Ag Negative (NEGATIVE) 09/11/18 12:00 Mycoplasma pneumon IgM Negative (NEGATIVE) 09/11/18 09:57 - Hospital Course Hospital Course: 48 yo F with pmhx of asthma, htn, dm2 presented to [facility] with cough and shortness of breath Community acquired pneumonia . -CXR showed shows multifocal infiltrates bilaterally right greater than left. -Chest CT: Extensive multifocal confluent ground-glass opacities in the lungs and confluent airpsace disease in the lower lobes. -Venous duplex: negative for DVT Abx: Ceftriaxone 1 gm IVPB Q24 hrs and Azithromycin 500mg ivpb q24 hrs s/p lasix 60 mg IV Duoneb: Q6Hr Pulmonology: Dr. Stern Pt clinically improved and discharged with Azithromycin and Cefuroxime with script for follow up CXR in 6 months. Pt has follow up appt with pmd Dr. Kelly 09/13/2018: at 2:00 pm Of note: BNP: 3080 Pending sputum culture and ECHO Plan discussed with Dr. Beatriz Boudreaux MD PGY2 Discharge Exam - Head Exam Head Exam: NORMAL INSPECTION - Eye Exam Eye Exam: EOMI - ENT Exam ENT Exam: Mucous Membranes Moist - Respiratory Exam Respiratory Exam: Clear to PA & Lateral, NORMAL BREATHING PATTERN. absent: Wheezes - Cardiovascular Exam Cardiovascular Exam: REGULAR RHYTHM, +S1, +S2 - GI/Abdominal Exam GI & Abdominal Exam: Normal Bowel Sounds, Soft. absent: Tenderness - Back Exam Back exam: absent: CVA tenderness (L), CVA tenderness (R) - Neurological Exam Neurological exam: Alert, CN II-XII Intact, Oriented x3 - Psychiatric Exam Psychiatric exam: Normal Affect, Normal Mood Discharge Plan - Discharge Medications Prescriptions: Albuterol Sulfate [Ventolin Hfa] 2 puff IH Q6 PRN #1 hfa.aer.ad PRN Reason: Shortness Of Breath Azithromycin 500 mg PO DAILY 7 Days #7 tablet Cefuroxime Axetil [Cefuroxime] 500 mg PO BID 7 Days #14 tablet - Follow Up Plan Condition: GUARDED Disposition: HOME/ ROUTINE Instructions: Community-Acquired Pneumonia, Adult (DC) Additional Instructions: Please take antibiotics: Azithromycin and cefuroxime to completion as prescribed . Please follow up with Dr. Kelly at [facility] Tomorrow 09/13/2018 at 2:00 PM and bring discharge summary with you Script for chest x ray given to follow up in 6 weeks [facility] [Provider Group]
--- NOTE | 2018-09-12 18:47 | CARD ---
APPROVED REPORT Date of service: 09/12/2018 EXAM: Two-dimensional and M-mode echocardiogram with Doppler and color Doppler. Other Information Quality : GoodRhythm : NSR INDICATION Elevated Pro BNP 2D DIMENSIONS IVSd0.93 (0.7-1.1cm)LVDd4.87 (3.9-5.9cm) LVOT Diameter2.05 (1.8-2.4cm)PWd1.10 (0.7-1.1cm) IVSs1.38 (0.8-1.2cm)LVDs3.65 (2.5-4.0cm) FS (%) 25.0 %PWs1.42 (0.8-1.2cm) M-Mode DIMENSIONS Left Atrium (MM)3.24 (2.5-4.0cm)IVSd0.97 (0.7-1.1cm) Aortic Root2.82 (2.2-3.7cm)LVDd5.12 (4.0-5.6cm) Aortic Cusp Exc.1.88 (1.5-2.0cm)PWd0.94 (0.7-1.1cm) IVSs1.47 cmFS (%) 39 % LVDs3.12 (2.0-3.8cm)PWs1.71 cm Aortic Valve AoV Peak Tcrudsrr926.8cm/sAoV VTI33.4cmAO Peak GR.14mmHg LVOT Peak Dnlrawur153.9cm/sLVOT VTI17.32cmAO Mean GR.8mmHg HIWOT (VMAX)1.86wn7ABX (VTI)1.00cm2 Mitral Valve MV E Trnhbfhw42.5cm/sMV DECEL [id number] A Ilfcepgp25.3cm/s MV PGP67ugS/A ratio1.0MVA (PHT)5.23cm2 TDI Lateral E' Peak V12.55cm/sMedial E' Peak V8.23cm/sE/Lateral E'7.8 E/Medial E'12.0 Tricuspid Valve TR Peak Gnslcpbp994vk/sRAP [id number] Peak Gr.10mmHg [id number] LEFT VENTRICLE The left ventricle is normal size. There is normal left ventricular wall thickness. The left ventricular systolic function is normal. The estimated ejection fraction is 55-60% No regional wall motion abnormalities noted.. Transmitral Doppler flow pattern is Grade I-abnormal relaxation pattern. No left ventricle thrombus noted on this study. There is no ventricular septal defect visualized. There is no left ventricular aneurysm. There is no mass noted in the left ventricle. RIGHT VENTRICLE The right ventricle is normal size. There is normal right ventricular wall thickness. The right ventricular systolic function is normal. ATRIA The left atrium size is normal. The right atrium size is normal. The interatrial septum is intact with no evidence for an atrial septal defect. AORTIC VALVE The aortic valve is normal in structure. No aortic regurgitation is present. There is no aortic valvular stenosis. There is no aortic valvular vegetation. MITRAL VALVE The mitral valve is normal in structure. There is no evidence of mitral valve prolapse. There is no mitral valve stenosis. There is trivial mitral valve regurgitation noted. TRICUSPID VALVE The tricuspid valve is normal in structure. There is trace tricuspid valve regurgitation noted. RVSP is calculated at 15 mm Hg. There is no tricuspid valve prolapse or vegetation. There is no tricuspid valve stenosis. PULMONIC VALVE The pulmonary valve is normal in structure. There is no pulmonic valvular regurgitation. There is no pulmonic valvular stenosis. GREAT VESSELS The aortic root is normal in size. The ascending aorta is normal in size. The pulmonary artery is normal. The IVC is normal in size and collapses >50% with inspiration. PERICARDIAL EFFUSION There is no pericardial effusion. There is no pleural effusion. <Conclusion> The estimated ejection fraction is 55-60% Transmitral Doppler flow pattern is Grade I-abnormal relaxation pattern. The left atrium size is normal. There is trivial mitral valve regurgitation noted. There is trace tricuspid valve regurgitation noted. RVSP is calculated at 15 mm Hg.
== END 2018-09-12 15:50 | disposition home or self-care (01) | DRG 190 ==
LOC: H.ER 15:11 → H.ERHOLD 18:28 → H.TEL 21:50
PROVIDERS: ADMIT Student in an Organized Health Care Education/Training Program; ATTEND Student in an Organized Health Care Education/Training Program
PROC: 3E0F73Z Introduction of Anti-inflammatory into Respiratory Tract, Via Natural or Artificial Opening (ICD-10-PCS; principal; 2018-09-10)
DX: J44.0 Chronic obstructive pulmonary disease with (acute) lower respiratory infection (principal); J18.9 Pneumonia, unspecified organism; N17.9 Acute kidney failure, unspecified; J44.1 Chronic obstructive pulmonary disease with (acute) exacerbation; E11.42 Type 2 diabetes mellitus with diabetic polyneuropathy; G89.29 Other chronic pain; I10 Essential (primary) hypertension; D64.9 Anemia, unspecified; E78.00 Pure hypercholesterolemia, unspecified; E78.5 Hyperlipidemia, unspecified; F17.210 Nicotine dependence, cigarettes, uncomplicated; Z79.4 Long term (current) use of insulin